=== PATIENT | female | born 1950 | race Caucasian/White ===

== ENCOUNTER 2022-04-05 06:25 | Day surgery (SDC) | payer OTHER ==
[2022-04-01 12:16] LABS: Absolute Lymphocytes (CBC) 1.2 K/uL (0.7-4.9); Hematocrit 37.3 % (36.0-45.0); MCV 93.3 fL (80-100); MPV 8.5 fL (7.6-11.3); RBC Red Blood Cell Count 3.99 M/uL (3.86-4.86)
[2022-04-05] MEDS ORDERED: Ringers Lactate 1,000 ML IV ONE (06:50)
[2022-04-05] MEDS ORDERED: CLINDAMYCIN 600MG/D5W 600 MG/50 ML BAG IV ONE (07:04)
[2022-04-05] MEDS ORDERED: LIDOCAINE 1% MPF 30 ML VIAL ONE (08:35)
[2022-04-05] MEDS ORDERED: VANCOMYCIN 1 GM/VIAL ONE (08:52)
[2022-04-05] MEDS ORDERED: ONDANSETRON 4 MG/2 ML VIAL ONE (09:08)
[2022-04-05] MEDS ORDERED: FENTANYL CITR 100 MCG/2 ML ONE (09:08)
[2022-04-05] MEDS ORDERED: LIDOCAINE 2% MPF 5 ML VIAL ONE (09:08)
[2022-04-05] MEDS ORDERED: propofoL 200 MG/20 ML VIAL IV ONE (09:08)
[2022-04-05] MEDS ORDERED: MIDAZOLAM HCL 2 MG/2 ML INJ ONE (09:42)
[2022-04-05] MEDS: MORPHINE 4 MG/ML SYR ONE ×4 (10:32→10:52)
[2022-04-05 12:11] VITALS: BP 155/74; TEMP 97.6; O2SAT 100
== END 2022-04-05 11:45 | disposition home or self-care (01) ==
LOC: OR 06:25
PROVIDERS: ATTEND Orthopaedic Surgery
PROC: 0JPT0VZ Removal of Infusion Pump from Trunk Subcutaneous Tissue and Fascia, Open Approach (ICD-10-PCS; principal; 2022-04-05 08:00)
DX: T85.615A Breakdown (mechanical) of other nervous system device, implant or graft, initial encounter (principal); G89.4 Chronic pain syndrome; M54.2 Cervicalgia; M54.50 Low back pain, unspecified; M25.551 Pain in right hip; M06.9 Rheumatoid arthritis, unspecified; I10 Essential (primary) hypertension; M54.16 Radiculopathy, lumbar region; Z88.0 Allergy status to penicillin
CPT/HCPCS: 62365; 85025; 80048; 36415; J2704; J2001; J2250; J3010; J3370; J7120; J2405

== ENCOUNTER 2024-01-14 17:08 | Emergency (ER) | payer OTHER ==
--- NOTE | 2024-01-14 18:43 | RAD REPORT ---
EXAM DESCRIPTION: US - Extremity Venous Uni Ltd - 01/14/2024 6:34 pm CLINICAL HISTORY: Pain swelling COMPARISON: None. TECHNIQUE: Real-time sonographic evaluation of the left lower extremity deep venous system was perfo rmed. FINDINGS: Normal compressibility, flow augmentation, phasic flow and spontaneous flow is identified in the left lower extremity deep venous system. No intraluminal filling defects seen. Mild subcutaneous edema is present at the patient's site of pain along the posterior thigh. No fluid collection identified. IMPRESSION: No DVT in the left lower extremity.
[2024-01-14] MEDS ORDERED: CEFTRIAXONE 1000 MG/VIAL ONE (19:10)
[2024-01-14] MEDS ORDERED: LIDOCAINE 1% MPF 5 ML VIAL ONE (19:10)
[2024-01-14] MEDS ORDERED: DOXYCYCLINE 100 MG CAP PO ONE (19:10)
--- NOTE | 2024-01-14 19:16 | ER ---
Nurse's Notes [facility] [place] Name: Belkis Watts Age: 73 yrs Sex: Female : 1950 Arrival Date: 01/14/2024 Time: 17:08 Bed 7 Private MD: Diagnosis: Cellulitis of left lower limb Presentation: 01/13 17:14 Chief complaint: Patient states: sent here from [facility] for US of leg. Pt c/o aa5 swelling, pain, and redness to left leg. 17:14 Onset of symptoms was December 2023. aa5 17:14 Acuity: ASTON 3 aa5 17:14 Method Of Arrival: Ambulatory aa5 17:14 Coronavirus screen: At this time, the client does not indicate any symptoms associated aa5 with coronavirus-19. Ebola Screen: Patient denies travel to an Ebola-affected area in the 21 days before illness onset. Initial Sepsis Screen: Does the patient meet any 2 criteria? No. Patient's initial sepsis screen is negative. Does the patient have a suspected source of infection? No. Patient's initial sepsis screen is negative. Risk Assessment: Do you want to hurt yourself or someone else? Patient reports no desire to harm self or others. Historical: - Allergies: 17:25 PENICILLINS; iw - PMHx: 17:25 Hypertensive disorder; Parkinson's disease; Arthritis; thyroid problem; iw 17:26 leg swelling; iw - PSHx: 17:25 Partial removal of thyroid; iw - Immunization history:: Adult Immunizations unknown. - Infectious Disease History:: Denies. - Social history:: Smoking status: Patient reports the use of cigarette tobacco products, denies chronic smoking, but will smoke occasionally. Screenin:34 [facility] ED Fall Risk Assessment (Adult) History of falling in the last 3 months, ld1 including since admission No falls in past 3 months (0 pts) Confusion or Disorientation No (0 pts) Intoxicated or Sedated No (0 pts) Impaired Gait No (0 pts) Mobility Assist Device Used No (0 pt) Altered Elimination No (0 pt) Score/Fall Risk Level 0 - 2 = Low Risk Oriented to surroundings, Maintained a safe environment, Educated pt \T\ family on fall prevention, incl call for assistance when getting out of bed, Assessed \T\ reinforced patient's understanding of fall precautions, Provided non-skid footwear, Hourly rounding (assess needs \T\ fall precautionary measures) done, Used ambulatory aids as needed (educated on \T\ assisted with), Used gait belt as appropriate. Abuse screen: Denies threats or abuse. Denies injuries from another. Nutritional screening: No deficits noted. Tuberculosis screening: No symptoms or risk factors identified. Assessment: 17:34 General: Appears in no apparent distress. comfortable, Behavior is calm, cooperative, ld1 appropriate for age. Pain: Denies pain. Neuro: Level of Consciousness is awake, alert, obeys commands, Oriented to person, place, time, situation, Appropriate for age. Cardiovascular: Capillary refill < 3 seconds Patient's skin is warm and dry. Respiratory: Airway is patent Respiratory effort is even, unlabored. GI: Abdomen is flat, non-distended. : No signs and/or symptoms were reported regarding the genitourinary system. EENT: No signs and/or symptoms were reported regarding the EENT system. Derm: No signs and/or symptoms reported regarding the dermatologic system. Musculoskeletal: Reports swelling to ZULEIMA knees. Vital Signs: 17:14 BP 136 / 79; Pulse 85; Resp 16 S; Temp 99(O); Pulse Ox 96% on R/A; Weight 46.72 kg (R); aa5 Height 5 ft. 0 in. (R); 17:34 BP 136 / 79; Pulse 76; Resp 18; Pulse Ox 95% on R/A; ld1 18:17 BP 146 / 105; Pulse 75; Resp 18; Pulse Ox 97% on R/A; ld1 19:23 BP 149 / 85; Pulse 78; Resp 18; Temp 98.7; Pulse Ox 98% ; Pain 0/10; jh8 17:14 Body Mass Index 20.12 (46.72 kg, 152.4 cm) aa5 19:23 Pain Scale: Adult [facility] ED Course: 17:11 Patient arrived in ED. im 17:14 Jad Arceo PA is PHCP. jr8 17:14 Naman Cross MD is Attending Physician. jr8 17:14 Arm band placed on. iw 17:27 Triage completed. aa5 17:32 Magalys Romano RN is Primary Nurse. ld1 17:34 Patient has correct armband on for positive identification. Placed in gown. Bed in low ld1 position. Call light in reach. Side rails up X2. oral and maxillofacial pathologist on. Pulse ox on. NIBP on. Door closed. Noise minimized. Warm blanket given. 17:34 No provider procedures requiring assistance completed. ld1 18:01 PHCP role handed off by Jad Arceo PA jr8 18:01 Naman Cordova PA is PHCP. jr8 18:36 Extremity Venous Uni Ltd US In Process Unspecified. EDMS 19:23 Provided Education on: follow up and medications, verbalized understanding. [facility] 19:23 Patient did not have IV access during this emergency room visit. [facility] Administered Medications: 19:12 Drug: Rocephin (cefTRIAXone) IM 1 grams IM once Route: IM; Site: right vastus lateralis;[facility] 19:21 Follow up: Response: No adverse reaction [facility] 19:12 Drug: Doxycycline PO 100 mg PO once Route: PO; 8 19:21 Follow up: Response: No adverse reaction [facility] Medication: 17:34 VIS not applicable for this client. 1 Outcome: 19:15 Discharge ordered by . wai 19:22 Discharged to home ambulatory, [facility] 19:22 Condition: good 19:22 Discharge instructions given to patient, Instructed on discharge instructions, follow up and referral plans. medication usage, Demonstrated understanding of instructions, follow-up care, medications, Prescriptions given X 2, 19:24 Patient left the ED. [facility] Signatures: Dispatcher [employer] EDMS Tammy Foreman RN RN Janette Adler RN RN aa5 Jad Arceo PA PA Naman Hansen PA PA cp Sims, Lauren, RN RN ld1 Jo Jackson Jesus RN RN jh8
--- NOTE | 2024-01-14 19:16 | EDPHYS ---
Physician Documentation [facility] Name: Belkis Watts Age: 73 yrs Sex: Female : 1950 Arrival Date: 01/14/2024 Time: 17:08 Bed 7 Private MD: ED Physician Naman Cross HPI: 01/13 17:47 This 73 yrs old Female presents to ER via Ambulatory with complaints of Leg Swelling. jr8 17:47 The patient presents with pain, swelling, tenderness, erythema . The complaints affect jr8 the Left lower extremity. Onset: The symptoms/episode began/occurred gradually, 2 day(s) ago. Modifying factors: The symptoms are alleviated by nothing. the symptoms are aggravated by nothing. Associated signs and symptoms: The patient has no apparent associated signs or symptoms. Severity of symptoms: At their worst the symptoms were mild, in the emergency department the symptoms are unchanged. The patient has not experienced similar symptoms in the past. The patient has been recently seen by a physician: Transferred from [facility] to here for Doppler. 73-year-old female presents to the emergency room via ambulance from an ER to ER transfer from [facility] after being evaluated and have concern for possible DVT of the left lower extremity. Patient stated that she has had increased swelling to the left lower extremity from the ankle to the proximal tibia with increased pain, redness, swelling. Periodically has bilateral lower extremity swelling but this time the left is greater than the right and with pain. [facility] was unable to obtain a venous Doppler to rule out acute venous thrombosis. So was sent to [facility] for further evaluation. Labs and notes sent via patient.. Historical: - Allergies: 17:25 PENICILLINS; iw - PMHx: 17:25 Hypertensive disorder; Parkinson's disease; Arthritis; thyroid problem; iw 17:26 leg swelling; iw - PSHx: 17:25 Partial removal of thyroid; iw - Immunization history:: Adult Immunizations unknown. - Infectious Disease History:: Denies. - Social history:: Smoking status: Patient reports the use of cigarette tobacco products, denies chronic smoking, but will smoke occasionally. ROS: 17:47 Eyes: Negative for injury, pain, redness, and discharge, ENT: Negative for injury, jr8 pain, and discharge, Neck: Negative for injury, pain, and swelling, Cardiovascular: Negative for chest pain, palpitations, and edema, Respiratory: Negative for shortness of breath, cough, wheezing, and pleuritic chest pain, Abdomen/GI: Negative for abdominal pain, nausea, vomiting, diarrhea, and constipation, Back: Negative for injury and pain, Skin: Negative for injury, rash, and discoloration, Neuro: Negative for headache, weakness, numbness, tingling, and seizure, 17:47 MS/extremity: Positive for erythema, swelling, tenderness, warmth, Exam: 17:47 Constitutional: This is a well developed, well nourished patient who is awake, alert, jr8 and in no acute distress. Eyes: Pupils equal round and reactive to light, extra-ocular motions intact. Lids and lashes normal. Conjunctiva and sclera are non-icteric and not injected. Cornea within normal limits. Periorbital areas with no swelling, redness, or edema. Cardiovascular: Regular rate and rhythm with a normal S1 and S2. No gallops, murmurs, or rubs. Normal PMI, no JVD. No pulse deficits. Respiratory: Lungs have equal breath sounds bilaterally, clear to auscultation and percussion. No rales, rhonchi or wheezes noted. No increased work of breathing, no retractions or nasal flaring. Abdomen/GI: Soft, non-tender, with normal bowel sounds. No distension or tympany. No guarding or rebound. No evidence of tenderness throughout. Back: No spinal tenderness. No costovertebral tenderness. Full range of motion. Skin: Warm, dry with normal turgor. Normal color with no rashes, no lesions, and no evidence of cellulitis. Neuro: Awake and alert, GCS 15, oriented to person, place, time, and situation. Motor strength 5/5 in all extremities. Sensory grossly intact. 17:47 Musculoskeletal/extremity: Extremities: grossly normal except: noted in the left leg: erythema, pain, swelling, tenderness, ROM: intact in all extremities, Circulation is intact in all extremities. Sensation intact. DVT Exam: pain, that is mild, of the left leg, swelling, that is mild, of the left leg, tenderness, that is mild, of the left leg, erythema, that is mild, of the left leg, increased warmth, that is mild, of the left leg, Vital Signs: 17:14 BP 136 / 79; Pulse 85; Resp 16 S; Temp 99(O); Pulse Ox 96% on R/A; Weight 46.72 kg (R); aa5 Height 5 ft. 0 in. (R); 17:34 BP 136 / 79; Pulse 76; Resp 18; Pulse Ox 95% on R/A; ld1 18:17 BP 146 / 105; Pulse 75; Resp 18; Pulse Ox 97% on R/A; ld1 19:23 BP 149 / 85; Pulse 78; Resp 18; Temp 98.7; Pulse Ox 98% ; Pain 0/10; jh8 17:14 Body Mass Index 20.12 (46.72 kg, 152.4 cm) aa5 19:23 Pain Scale: Adult [facility] MDM: 17:14 Patient medically screened. [facility] 17:47 Differential diagnosis: DVT, venous stasis, lymphedema, cellulitis, CHF, liver disease. [facility] Data reviewed: vital signs, nurses notes, lab test result(s), radiologic studies, ultrasound. 17:52 External Records Reviewed: Outside ED record: CBC stable and without increase in WBC or jr8 acute H/H abnormalities. Chemistries stable other than slight increase in CO2. DD elevated 682. . 18:00 Transition of care: After a detail discussion of the patient's case, care is jr8 transferred to Naman LISA. 01/13 17:23 Order name: Extremity Venous Uni Ltd ; Complete Time: 19:00 [facility] 01/13 19:01 Interpretation: Report reviewed. cp Administered Medications: 19:12 Drug: Rocephin (cefTRIAXone) IM 1 grams IM once Route: IM; Site: right vastus lateralis;[facility] 19:21 Follow up: Response: No adverse reaction [facility] 19:12 Drug: Doxycycline PO 100 mg PO once Route: PO; [facility] 19:21 Follow up: Response: No adverse reaction [facility] Disposition Summary: 01/14/24 19:15 Discharge Ordered Notes: Location: Home cp Problem: new cp Symptoms: have improved cp Condition: Stable cp Diagnosis - Cellulitis of left lower limb cp Followup: cp - With: Private Physician - When: 2 - 3 days - Reason: Recheck today's complaints Discharge Instructions: - Discharge Summary Sheet cp - Cellulitis, Adult cp Forms: - Medication Reconciliation Form cp - Antibiotic Education cp - Prescription Opioid Use cp - Patient Portal Instructions cp - Leadership Thank You Letter cp Prescriptions: - Doxycycline Hyclate 100 mg Oral Tablet - take 1 tablet ORAL route every 12 hours; 20 tablet; Refills: 0, Product cp Selection Permitted - Tramadol 50 mg Oral Tablet - take 1 tablet ORAL route every 8 hours as needed; 12 tablet; Refills: 0, cp Product Selection Permitted Signatures: Dispatcher [employer] Tammy Rivera RN RN iw Janette Adler RN RN aa5 Jad Arceo PA PA jr8 Naman Cordova PA PA cp Herrera, Jesus RN RN jh8
[2024-01-14 19:34] VITALS: BP 149/85; TEMP 98.7; O2SAT 98
== END 2024-01-14 19:24 | disposition home or self-care (01) ==
LOC: ER 17:08
DX: L03.116 Cellulitis of left lower limb (principal); F17.210 Nicotine dependence, cigarettes, uncomplicated
CPT/HCPCS: 93971; 96372; 99285; J2001; J0696